=== PATIENT | female | born 1980 ===

== ENCOUNTER 2021-09-14 05:12 | Emergency (ER) | payer OTHER ==
[~2021-09-14] VITALS: Wt 56.8 kg
[2021-09-14] MEDS ORDERED: CELEBREX 200MG200 MG PO (06:21)
[2021-09-14] MEDS ORDERED: GABAPENTIN100 MG PO ×2 (06:22→06:23)
[2021-09-14] MEDS ORDERED: MELATONIN3 M3 PO (06:36)
[2021-09-14] MEDS ORDERED: HALDOL 1MG T1 MG/TAB PO (06:36)
[2021-09-14] MEDS ORDERED: GOOD SENSE OMEP20 MG PO (06:37)
[2021-09-14] MEDS ORDERED: MINIPRESS 1M1 MG/CAP PO (06:37)
[2021-09-14] MEDS ORDERED: DESYREL 100MG100 MG PO (06:38)
[2021-09-14] MEDS ORDERED: REXULTI2 MG PO (06:38)
[2021-09-14] MEDS ORDERED: VITAMIN C PUR1000 MG PO (06:38)
[2021-09-14] MEDS ORDERED: CLONAZEPAM1 M1 PO (06:39)
[2021-09-14] MEDS ORDERED: ZOFRAN ODT4 MG PO (06:39)
[2021-09-14 06:54] LABS: BASO # 0.01 K/mm3 (0.02-0.10); EOS # 0.05 K/mm3 (0.04-0.40); EOS % 0.6 % (1.0-5.0); HEMATOCRIT 41.1 % (37.0-47.0); HEMOGLOBIN 13.5 g/dL (12.5-16.0); LYMPH# 1.76 K/mm3 (1.50-4.00); MEAN CELL VOLUME 86 fl (78-100); MEAN CORPUSCULAR HEMOGLOBIN 28 pg (27-31); MEAN CORPUSCULAR HGB CONC 33 g/dL (33-37); MEAN PLATELET VOLUME 9.3 fl (7.4-10.4); MONO # 0.61 K/mm3 (0.20-0.80); NEU # 5.52 K/mm3 (1.40-6.50); PLATELET COUNT 202 K/mm3 (130-400); RED BLOOD COUNT 4.76 M/mm3 (4.10-5.30)
[2021-09-14 07:04] LABS: ALBUMIN 4.5 g/dL (3.5-5.0); POTASSIUM 3.6 mmol/L (3.5-5.1)
[2021-09-14 07:05] LABS: CALCIUM 9.4 mg/dL (8.3-10.5)
[2021-09-14 07:07] LABS: TOTAL PROTEIN 7.8 g/dL (6.4-8.3)
[2021-09-14 07:08] LABS: TOTAL BILIRUBIN 0.8 mg/dL (0.2-1.2)
[2021-09-14 08:32] VITALS: BP 118/69
== END 2021-09-14 08:30 | disposition home or self-care (01) ==
LOC: ED 05:12
PROVIDERS: Family Medicine
DX: R56.9 Unspecified convulsions (principal)